=== PATIENT | female | born 1960 | race Caucasian/White ===

== ENCOUNTER 2024-07-16 06:48 | Day surgery (SDC) | payer OTHER, MEDICAID ==
[~2024-07-16] VITALS: Ht 167.6 cm; Wt 90.7 kg
[2024-07-16] MEDS ORDERED: MIDAZOLAM HCL 5 MG/5 ML VIAL ONE (07:29)
[2024-07-16] MEDS ORDERED: MEPERIDINE 100 MG INJ. 100 MG/ML VIAL ONE (07:29)
[2024-07-16] MEDS ORDERED: SIMETHICONE 40 MG/0.6 ML ML ONE (07:29)
[2024-07-16 12:17] VITALS: O2SAT 99
[2024-07-16 16:53] VITALS: BP_SYST 113; PULSE 63; RESP 11
== END 2024-07-16 09:04 | disposition home or self-care (01) ==
LOC: SDS 06:48 → SMU 06:51 → SDS 09:04
PROVIDERS: ATTEND Internal Medicine Gastroenterology
DX: Z12.11 Encounter for screening for malignant neoplasm of colon (principal); K64.8 Other hemorrhoids; K57.30 Diverticulosis of large intestine without perforation or abscess without bleeding; K21.9 Gastro-esophageal reflux disease without esophagitis; Z90.710 Acquired absence of both cervix and uterus; Z90.49 Acquired absence of other specified parts of digestive tract; Z79.899 Other long term (current) drug therapy; Z86.010 Personal history of colon polyps
CPT/HCPCS: 45378; 99152; J2250; J2175